=== PATIENT | male | born 1995 | race African-American/Black ===

== ENCOUNTER 2016-09-18 22:08 | Emergency (ER) | payer OTHER ==
[2016-09-19] MEDS ORDERED: MORPHINE SULFATE IR 15 MG TABLET PO ONE (01:12)
[2016-09-19] MEDS ORDERED: IBUPROFEN 600 MG TABLET PO ONE (01:13)
[2016-09-19] MEDS ORDERED: ACETAMINOPHEN 325 MG TABLET PO ONE (01:13)
--- NOTE | 2016-09-19 01:43 | ER Document Report ---
ED General - General Chief Complaint: Shoulder Injury Stated Complaint: POSSIBLE BROKEN COLLAR BONE Time Seen by Provider: 09/19/16 00:57 Notes: Patient is a 21-year-old male with a past medical history who presents after his right knee "buckled on me" causing him to fall on his porch. He states he fell directly onto his left clavicle. Since that time he has had a severe, constant, throbbing pain to the left clavicle and shoulder area. Denies any associated weakness or numbness. No head or neck injury. He has not seen his primary care doctor regarding today's concerns. No history of similar injury in the past. TRAVEL OUTSIDE OF THE [place] IN LAST 30 DAYS: No - Related Data Allergies/Adverse Reactions: No Known Allergies Allergy (Verified 09/19/16 01:05) Past Medical History - General Information source: Patient - Social History Smoking Status: Never Smoker Frequency of alcohol use: None Drug Abuse: None Lives with: Spouse/Significant other Family History: Reviewed & Not Pertinent Patient has suicidal ideation: No Patient has homicidal ideation: No Renal/ Medical History: Denies: Hx Peritoneal Dialysis Review of Systems - Review of Systems Notes: Constitutional: Negative for fever. Eyes: Negative for visual changes. ENT: Negative for facial injury Cardiovascular: Negative for chest injury. Respiratory: Negative for shortness of breath. Gastrointestinal: Negative for abdominal injury. Genitourinary: Negative for genital injury Musculoskeletal: Positive for left clavicle injury Skin: Negative for laceration/abrasions. Neurological: Negative for head injury. Physical Exam - Vital signs Vitals: Temp Pulse Resp BP Pulse Ox 98.5 F 56 L 18 154/67 H 98 09/18/16 22:16 09/18/16 22:16 09/18/16 22:16 09/18/16 22:16 09/18/16 22:16 Interpretation: Bradycardic Notes: PHYSICAL EXAMINATION: GENERAL: Well-appearing, no acute distress. HEAD: Atraumatic, normocephalic. EYES: Pupils equal round and reactive to light, extraocular movements intact, sclera anicteric, conjunctiva are normal. ENT: nares patent, no oral pharyngeal trauma. No hemotympanum, no Costa's sign , no raccoon eyes. NECK: No midline cervical spine tenderness. Patient able to move their head to 45 bilaterally without any discomfort. LUNGS: Breath sounds clear to auscultation bilaterally and equal. No wheezes rales or rhonchi. HEART: Regular rate and rhythm without murmurs. CHEST WALL: No ecchymosis over the chest wall. ABDOMEN: Soft, nontender, normoactive bowel sounds. No guarding, no rebound. No abdominal bruising EXTREMITIES: Normal range of motion, no pitting or edema. No long bone deformities. Pain on palpation of the left clavicle BACK: No midline spinal tenderness, step-offs, or deformities. NEUROLOGICAL: Face symmetric. Tongue protrudes midline. Extraocular motions intact. Pupils are 2 mm and equally reactive. Normal speech, normal gait. 5 out of 5 strength in both the distal and proximal upper and lower extremities bilaterally. Sensation is grossly intact throughout. Finger to nose testing normal. Pronator drift normal. PSYCH: Normal mood, normal affect. SKIN: Warm, Dry, normal turgor, no rashes or lesions noted. Course - Re-evaluation Re-evalutation: 09/19/16 04:24 Patient presents with findings on history and exam most consistent with an acute left clavicle fracture. Patient sustained this after falling off of his porch. He has no evidence of a pneumothorax on exam or imaging. He has been placed in a sling. No neurologic deficit. Orthopedic follow-up has been recommended. No evidence of cervical spine injury and no evidence of head injury. He denies any back injury or pain. No other extremity injury. At this time will discharge with return precautions and follow-up recommendations. Verbal discharge instructions given a the bedside and opportunity for questions given. Medication warnings reviewed. Patient is in agreement with this plan and has verbalized understanding of return precautions and the need for primary care follow-up in the next 24-72 hours. - Vital Signs Vital signs: Temp Pulse Resp BP Pulse Ox 98.5 F 56 L 18 154/67 H 98 09/18/16 22:16 09/18/16 22:16 09/18/16 22:16 09/18/16 22:16 09/18/16 22:16 - Diagnostic Test Radiology reviewed: Image reviewed, Reports reviewed Radiology results interpreted by me: 09/19/16 04:25 Clavicle x-ray: Comminuted left clavicle fracture Discharge - Discharge Clinical Impression: Closed left clavicular fracture Qualifiers: Encounter type: initial encounter Clavicle location: unspecified part of clavicle Fracture alignment: displaced Qualified Code(s): S42.002A - Fracture of unspecified part of left clavicle, initial encounter for closed fracture Condition: Good Disposition: HOME, SELF-CARE Additional Instructions: You have a fracture of your left clavicle that is broken in several places. These will heal on their own but you need to wear a sling. He may take the splint off to shower and to rest. Please follow-up with orthopedic surgery. For your pain: Take ibuprofen 600 mg and acetaminophen 1000 mg every 6 hours together as needed for pain. If this does not control your pain you may take 15 mg of oral morphine every 4 hours as needed. Please be very careful about using the oral morphine and only use this for severe pain. Prescriptions: Morphine Sulfate [Morphine Ir 15 mg Tablet] 15 mg PO Q4HP PRN #12 tablet PRN Reason:
--- NOTE | 2016-09-19 01:54 | RADIOLOGY REPORT (SQ) ---
EXAM DESCRIPTION: CLAVICLE LEFT COMPLETED DATE/TIME: 09/19/2016 1:36 am REASON FOR STUDY: injury COMPARISON: None. NUMBER OF VIEWS: Two views. TECHNIQUE: Frontal and angled images were acquired of the left clavicle. LIMITATIONS: None. FINDINGS: MINERALIZATION: Normal. BONES: Comminuted fracture wrists absent with inferior displacement and 2.9 cm impaction of the left mid clavicle. No evidence of healing. SOFT TISSUES: No obvious swelling or foreign body. OTHER: No other significant finding. IMPRESSION: Comminuted left midclavicular fracture. TECHNICAL DOCUMENTATION: JOB ID: [id number]- All Rights Reserved
[2016-09-19 04:46] VITALS: BP 138/68
== END 2016-09-19 01:50 | disposition home or self-care (01) ==
LOC: ER 22:08
DX: S42.002A Fracture of unspecified part of left clavicle, initial encounter for closed fracture (principal); W18.30XA Fall on same level, unspecified, initial encounter; Y92.098 Other place in other non-institutional residence as the place of occurrence of the external cause; R00.1 Bradycardia, unspecified
CPT/HCPCS: 99283